=== PATIENT | male | born 1975 | race Caucasian/White ===

== ENCOUNTER → 2023-04-26 12:18 | Outpatient (BNVA) | payer BC, MEDICAID, SELFPAY | PROVIDERS: PCP Family Medicine; Visit Provider Anesthesiology Pain Medicine | DX: G89.29 Other chronic pain; M47.22 Other spondylosis with radiculopathy, cervical region; G56.03 Carpal tunnel syndrome, bilateral upper limbs | CPT/HCPCS: 72040; 99204 ==

== ENCOUNTER 2023-06-03 09:22 | Outpatient (CLI) | payer BC, MEDICAID, SELFPAY ==
--- NOTE | 2023-06-03 09:30 | MR_ITS ---
WS: [id number] MRI CERVICAL SPINE NONCONTRAST TECHNIQUE: Sagittal T1, T2 and STIR imaging. Axial T2, gradient, and fiesta imaging. CLINICAL INFORMATION: M54.12 - Radiculopathy, cervical region COMPARISON: None. FINDINGS: Straightening the normal cervical lordosis. Cord signal is normal. Shallow central protrusions at C4- C5 and C5-C6. Cord signal is normal. C2-C3: Normal. C3-C4: Moderate facet arthropathy. Moderate LEFT and mild RIGHT bony foraminal narrowing. Edema withi n the LEFT C3-4 facets. C4-C5: Mild disc osteophytic ridging. Mild RIGHT and no significant LEFT foraminal narrowing. Moderat e RIGHT facet arthropathy. C5-C6: Mild disc bulging with slight effacement of the ventral thecal sac. Shallow RIGHT paracentral protrusion with slight contact of the RIGHT ventral cervical cord. Moderate RIGHT bony foraminal narr owing. Spinal canal and LEFT foramen are patent. C6-C7: Disc osteophyte ridging eccentric to the LEFT. Moderate LEFT and no significant RIGHT foramina l narrowing. Spinal canal is patent. C7-T1: Mild LEFT and no significant RIGHT foraminal narrowing. Spinal canal is patent. Visualized brain stem structures: Normal. Prevertebral soft tissues: Normal. IMPRESSION: 1. Straightening of the normal cervical lordosis. Cord signal is normal. 2. Edema within the LEFT C3-4 facets compatible with synovitis likely degenerative or inflammatory. 3. Moderate bony foraminal narrowing LEFT C3-4, RIGHT C5-6 and LEFT C6-7. 4. Mild disc bulging C4-C5 and C5-C6. Slight contact of the RIGHT ventral cervical cord at C5-6. Spi nal canal remains patent.
== END 2023-06-03 09:23 | disposition home or self-care (01) ==
PROVIDERS: PCP Family Medicine; Visit Provider Anesthesiology Pain Medicine
DX: M54.12 Radiculopathy, cervical region (principal); M50.323 Other cervical disc degeneration at C6-C7 level
CPT/HCPCS: 72141